=== PATIENT | male | born 1995 | race American Indian/Alaskan Native ===

== ENCOUNTER 2021-12-25 12:08 | Emergency (ER) | payer SELFPAY ==
[2021-12-25 13:49] VITALS: BP 130/80
--- NOTE | 2021-12-25 13:49 | Emergency Department Report ---
ED General Adult HPI - General Chief complaint: Extremity Injury, Upper Stated complaint: FINGER PAIN Time Seen by Provider: 12/25/21 12:17 Source: patient Mode of arrival: Ambulatory Limitations: No Limitations - History of Present Illness Initial comments: 26-year-old male with multiple complaining of pain to the right finger after he bumped it at work resulting in a open wound to the dorsum of the proximal interphalangeal joint. Pain is dull dull and throbbing but no no discharge. No fever, chills, sweats pain no nausea vomiting. -: Gradual Radiation: non-radiation Quality: dull Consistency: constant Improves with: none Worsens with: none Associated Symptoms: denies other symptoms. denies: chest pain, malaise, nausea/vomiting, shortness of breath, syncope, weakness Treatments Prior to Arrival: none - Related Data Previous Rx's Medication Instructions Recorded Last Taken Type Ketorolac [Toradol] 10 mg PO Q6H PRN #20 12/25/21 Unknown Rx cephALEXin [Keflex] 500 mg PO Q8HR #21 cap 12/25/21 Unknown Rx Allergies Allergy/AdvReac Type Severity Reaction Status Date / Time No Known Allergies Allergy Unverified 12/25/21 12:10 ED Review of Systems ROS: Stated complaint: FINGER PAIN Other details as noted in HPI Comment: All other systems reviewed and negative ED Past Medical Hx - Past Medical History Previous Medical History?: No - Surgical History Additional Surgical History: FOOT - Medications Home Medications: Home Medications Medication Instructions Recorded Confirmed Last Taken Type Ketorolac [Toradol] 10 mg PO Q6H PRN #20 12/25/21 Unknown Rx cephALEXin [Keflex] 500 mg PO Q8HR #21 cap 12/25/21 Unknown Rx ED Physical Exam - General Limitations: No Limitations General appearance: alert, in no apparent distress - Head Head exam: Present: atraumatic, normocephalic - Eye Eye exam: Present: normal appearance, PERRL - ENT ENT exam: Present: mucous membranes moist - Neck Neck exam: Present: normal inspection - Respiratory Respiratory exam: Present: normal lung sounds bilaterally. Absent: respiratory distress - Cardiovascular Cardiovascular Exam: Present: regular rate, normal rhythm. Absent: systolic murmur, diastolic murmur, rubs, gallop - GI/Abdominal GI/Abdominal exam: Present: soft, normal bowel sounds - Rectal Rectal exam: Present: deferred - Extremities Exam Extremities exam: Present: normal inspection, tenderness (Tenderness to the right proximal interphalangeal joint. No discharge. Mild redness is local.) - Back Exam Back exam: Present: normal inspection. Absent: CVA tenderness (R), CVA tenderness (L) - Neurological Exam Neurological exam: Present: alert, oriented X3 - Psychiatric Psychiatric exam: Present: normal affect, normal mood - Skin Skin exam: Present: warm, dry, intact, normal color. Absent: rash ED Course Vital Signs 12/25/21 12/25/21 12:12 13:48 Temperature 98.2 F 97.9 F Pulse Rate 65 60 Respiratory 16 16 Rate Blood Pressure 131/83 Blood Pressure 130/80 [Right] O2 Sat by Pulse 100 99 Oximetry Critical care attestation.: If time is entered above; I have spent that time in minutes in the direct care of this critically ill patient, excluding procedure time. ED Disposition Clinical Impression: Callus of hand, Cellulitis Disposition: 01 HOME / SELF CARE / HOMELESS Is pt being admited?: No Does the pt Need Aspirin: No Condition: Stable Instructions: Cellulitis, Adult, Corns and Calluses Prescriptions: cephALEXin [Keflex] 500 mg PO Q8HR #21 cap Ketorolac [Toradol] 10 mg PO Q6H PRN #20 PRN Reason: Pain Referrals: [facility] [Provider Group] - 3-5 Days
== END 2021-12-25 13:20 | disposition home or self-care (01) ==
LOC: ED 12:08
DX: L84 Corns and callosities (principal); L03.113 Cellulitis of right upper limb; Z79.899 Other long term (current) drug therapy
CPT/HCPCS: 99282